=== PATIENT | female | born 1985 | race African-American/Black ===

== ENCOUNTER 2020-11-06 14:10 | Outpatient (CLI) | payer BC, MEDICAID | END 2020-11-06 14:11 | disposition home or self-care (01) | LOC: CSHULT 14:10 | PROVIDERS: ATTEND Family Medicine | DX: N83.8 Other noninflammatory disorders of ovary, fallopian tube and broad ligament (principal); N83.9 Noninflammatory disorder of ovary, fallopian tube and broad ligament, unspecified | CPT/HCPCS: 76856 ==